=== PATIENT | female | born 1930 | race Caucasian/White ===

== ENCOUNTER 2016-12-27 13:10 | Inpatient (IN) | payer MEDICARE ==
[~2016-12-27] VITALS: Ht 157.5 cm; Wt 51.2 kg
[~2016-12-27 13:10] MED LIST: DABI150C HOMEMEDPO; DABI75CA3 PO; DILT240C80 PO; LEVO100T5 PO; VALS320T2 PO
[2016-12-27 14:23] LABS: BLOOD UREA NITROGEN 22 mg/dL (7-18)
[2016-12-27 14:28] LABS: ASPARTATE AMINO TRANSFERASE 23 U/L (15-37); IS PT STATUS REG ER OR PRE ER? YES
[2016-12-27] MEDS ORDERED: FUROSEMIDE 20 MG/2 ML IV ONE (15:30)
[2016-12-27] MEDS ORDERED: ONDANSETRON ODT 4 MG PO PRN (17:00)
[2016-12-27] MEDS ORDERED: DOCUSATE 100 MG CAPSULE PO PRN (17:00)
[2016-12-27] MEDS ORDERED: TRAZODONE 50MG TABLET PO PRN (17:00)
[2016-12-27 17:13] LABS: IS PT STATUS REG ER OR PRE ER? YES
[2016-12-27 19:26] VITALS: BP 157/74
[2016-12-27] MEDS: FUROSEMIDE 20 MG/2 ML IV SCH (20:10)
[2016-12-27] MEDS: PIPERACILLIN/TAZO/PMX 3.375GM 50 ML IV SCH (20:10)
[2016-12-27] MEDS: DABIGATRAN 75 MG CAPSULE PO SCH (20:10)
[2016-12-27 20:11] VITALS: BP 160/94
[2016-12-27 23:10] LABS: IS PT STATUS REG ER OR PRE ER? NO
[2016-12-28 00:26] VITALS: BP 175/90
[2016-12-28] MEDS: PIPERACILLIN/TAZO/PMX 3.375GM 50 ML IV SCH ×3 (02:54→18:10)
[2016-12-28 04:58] LABS: BLOOD UREA NITROGEN 22 mg/dL (7-18)
[2016-12-28] MEDS: LEVOTHYROXINE 100 MCG TABLET PO SCH (05:58)
[2016-12-28 06:57] VITALS: BP 161/101
[2016-12-28] MEDS: DABIGATRAN 75 MG CAPSULE PO SCH ×2 (10:27→22:06)
[2016-12-28] MEDS: DILTIAZEM 240 MG CAP.ER.24H PO SCH (10:28)
[2016-12-28] MEDS: FUROSEMIDE 20 MG/2 ML IV SCH ×2 (10:28→18:10)
[2016-12-28] MEDS: VALSARTAN 320 MG TABLET PO SCH (10:28)
[2016-12-28] MEDS ORDERED: OMNIPAQUE 350 MG/ML, 100ML BOTTLE ONE (15:02)
[2016-12-28 16:35] VITALS: BP 132/74
[2016-12-28 20:26] VITALS: BP 124/73
[2016-12-29] MEDS: PIPERACILLIN/TAZO/PMX 3.375GM 50 ML IV SCH (02:14)
[2016-12-29 02:17] VITALS: BP 136/97
[2016-12-29] MEDS: LEVOTHYROXINE 100 MCG TABLET PO SCH (06:31)
[2016-12-29 07:25] VITALS: BP 155/91
[2016-12-29] MEDS: FUROSEMIDE 20 MG/2 ML IV SCH (07:30)
[2016-12-29] MEDS ORDERED: POTASSIUM CHLORIDE 20 MEQ TAB.ER.PRT PO ONE (08:00)
[2016-12-29] MEDS: VALSARTAN 320 MG TABLET PO SCH (08:10)
[2016-12-29] MEDS: DABIGATRAN 75 MG CAPSULE PO SCH ×2 (08:11→20:39)
[2016-12-29] MEDS: DILTIAZEM 240 MG CAP.ER.24H PO SCH (08:11)
[2016-12-29] MEDS: FUROSEMIDE 20 MG TABLET PO SCH ×2 (09:54→16:41)
[2016-12-29 12:40] VITALS: BP 122/67
[2016-12-29 19:46] VITALS: BP 125/79
[2016-12-30 01:09] VITALS: BP 138/71
[2016-12-30 05:20] LABS: BLOOD UREA NITROGEN 27 mg/dL (7-18)
[2016-12-30] MEDS: LEVOTHYROXINE 100 MCG TABLET PO SCH (05:51)
[2016-12-30] MEDS ORDERED: POTASSIUM CHLORIDE 20 MEQ TAB.ER.PRT PO ONE (07:00)
[2016-12-30 07:17] VITALS: BP 142/100
[2016-12-30] MEDS: FUROSEMIDE 20 MG TABLET PO SCH (08:13)
[2016-12-30] MEDS: DILTIAZEM 240 MG CAP.ER.24H PO SCH (08:13)
[2016-12-30] MEDS: VALSARTAN 320 MG TABLET PO SCH (08:13)
[2016-12-30] MEDS: DABIGATRAN 75 MG CAPSULE PO SCH (08:14)
== END 2016-12-30 11:38 | disposition hospice, home (50) | DRG 291 ==
LOC: ED 15:18 → EDIP 15:19 → 5SO 17:27 → 4EST 12-28 18:45
PROVIDERS: ADMIT Internal Medicine; ATTEND Internal Medicine
DX: I11.0 Hypertensive heart disease with heart failure (principal); G93.41 Metabolic encephalopathy; J96.01 Acute respiratory failure with hypoxia; J18.9 Pneumonia, unspecified organism; D68.69 Other thrombophilia; C79.9 Secondary malignant neoplasm of unspecified site; I50.31 Acute diastolic (congestive) heart failure; I48.91 Unspecified atrial fibrillation; E03.9 Hypothyroidism, unspecified; F03.90 Unspecified dementia, unspecified severity, without behavioral disturbance, psychotic disturbance, mood disturbance, and anxiety; G89.29 Other chronic pain; M54.9 Dorsalgia, unspecified; J43.9 Emphysema, unspecified; Z51.5 Encounter for palliative care; Z66 Do not resuscitate; Z79.01 Long term (current) use of anticoagulants; Z85.41 Personal history of malignant neoplasm of cervix uteri; Z87.01 Personal history of pneumonia (recurrent); Z87.891 Personal history of nicotine dependence; Z99.81 Dependence on supplemental oxygen; R91.8 Other nonspecific abnormal finding of lung field
CPT/HCPCS: 36415; 70470; 71010; 71260; 80048; 80053; 83880; 84436; 84481; 84484; 85025; 93005; 93306; J2543; Q9967; J1940